=== PATIENT | female | born 1965 | race Hispanic/Latino ===

== ENCOUNTER 2020-11-21 12:41 | Outpatient (CLI) | payer MEDICAID ==
--- NOTE | 2020-11-21 13:51 | XRay Report ---
LEFT WRIST 4 VIEWS INDICATION: UNSPECIFIED FRACTURE OF LEFT WRIST. COMPARISON: None IMPRESSION: A splint has been applied which degrades bony detail. Mildly displaced distal radial fr acture is evident. Nondisplaced ulnar styloid fracture is also suspected. The carpal bones appear int act and in appropriate relationship. No significant joint pathology is appreciated. Signer Name: Barry Ferguson Jr, MD Signed: 11/21/2020 1:46 PM Workstation Name: [id number]
== END 2020-11-21 12:42 | disposition home or self-care (01) ==
LOC: XRAY 12:41
PROVIDERS: ATTEND Orthopaedic Surgery
DX: S52.502A Unspecified fracture of the lower end of left radius, initial encounter for closed fracture (principal); S62.92XA Unspecified fracture of left hand, initial encounter for closed fracture; X58.XXXA Exposure to other specified factors, initial encounter; Y93.89 Activity, other specified; Y92.89 Other specified places as the place of occurrence of the external cause; Y99.8 Other external cause status

== ENCOUNTER 2020-12-13 12:41 | Outpatient (CLI) | payer MEDICAID ==
--- NOTE | 2020-12-13 15:54 | XRay Report ---
Left wrist radiograph, 3 views HISTORY: Left wrist pain COMPARISON: 11/21/2020. FINDINGS: Overlying fiberglass casting material limits soft tissue detail. There is stable alignment of impacted distal left radial fracture with stable residual dorsal displacement and slight dorsal ti lt of the distal radial articular surface. Ulnar styloid fracture is also stable alignment. There is positive ulnar variance, unchanged. No new skeletal abnormality. Signer Name: Robert Vallejo MD Signed: 12/13/2020 3:49 PM Workstation Name: [id number]
== END 2020-12-13 12:42 | disposition home or self-care (01) ==
LOC: XRAY 12:41
PROVIDERS: ATTEND Orthopaedic Surgery
DX: S52.612A Displaced fracture of left ulna styloid process, initial encounter for closed fracture (principal); S62.92XA Unspecified fracture of left hand, initial encounter for closed fracture; X58.XXXA Exposure to other specified factors, initial encounter; Y93.89 Activity, other specified; Y92.89 Other specified places as the place of occurrence of the external cause; Y99.8 Other external cause status

== ENCOUNTER 2020-12-27 15:53 | Outpatient (CLI) | payer MEDICAID ==
--- NOTE | 2020-12-27 17:24 | XRay Report ---
LEFT WRIST 2 VIEWS INDICATION: UNSPEC FRACTURE. COMPARISON: 12/13/2020 IMPRESSION: The cast/splint has been removed. Distal radial fracture and ulnar styloid fracture marli ear unchanged in position and alignment since 12/13/2020. Perhaps minimal calcified callus is identif ied at the fracture site although fracture lines remain evident. The carpal bones remain intact with mild degenerative changes. There is diffuse soft tissue swelling. Signer Name: Barry Ferguson Jr, MD Signed: 12/27/2020 5:20 PM Workstation Name: [id number]
== END 2020-12-27 15:54 | disposition home or self-care (01) ==
LOC: XRAY 15:53
PROVIDERS: ATTEND Orthopaedic Surgery
DX: S52.512A Displaced fracture of left radial styloid process, initial encounter for closed fracture (principal); S52.612A Displaced fracture of left ulna styloid process, initial encounter for closed fracture; X58.XXXA Exposure to other specified factors, initial encounter; S62.92XA Unspecified fracture of left hand, initial encounter for closed fracture; Y93.89 Activity, other specified; M19.032 Primary osteoarthritis, left wrist; M79.89 Other specified soft tissue disorders; Y92.89 Other specified places as the place of occurrence of the external cause; Y99.8 Other external cause status